=== PATIENT | female | born 1990 | race African-American/Black ===

== ENCOUNTER 2017-05-28 03:15 | Emergency (ER) | payer SELFPAY ==
[~2017-05-28] VITALS: Ht 154.9 cm; Wt 73.0 kg
[~2017-05-28 03:15] MED LIST: PREN-88 PO
[2017-05-28 03:54] VITALS: BP 118/74
== END 2017-05-28 07:43 | disposition left against medical advice (07) ==
LOC: ER 07:41
DX: R10.9 Unspecified abdominal pain (principal); Z53.21 Procedure and treatment not carried out due to patient leaving prior to being seen by health care provider

== ENCOUNTER 2022-03-14 06:17 | Emergency (ER) | payer MEDICAID ==
[~2022-03-14] VITALS: Ht 157.5 cm; Wt 79.0 kg
[2022-03-14] MEDS ORDERED: ALBUTEROL (0.083%) 2.5MG/3ML NEB HHN STA (06:32)
[2022-03-14] MEDS ORDERED: PREDNISONE 20MG TABLET PO STA (06:32)
[2022-03-14] MEDS ORDERED: P50 MT (08:59)
[2022-03-14] MEDS ORDERED: ALBU6.7H9 INH (08:59)
[2022-03-14 09:21] VITALS: BP 118/76
== END 2022-03-14 09:22 | disposition home or self-care (01) ==
LOC: ER 06:48
DX: J45.901 Unspecified asthma with (acute) exacerbation (principal); Z98.890 Other specified postprocedural states; F17.290 Nicotine dependence, other tobacco product, uncomplicated
CPT/HCPCS: 71045; 94640; 99283; 99406; J7512; Z7610

== ENCOUNTER 2022-04-30 15:11 | Emergency (ER) | payer MEDICAID ==
[~2022-04-30] VITALS: Ht 154.9 cm; Wt 100.0 kg
[~2022-04-30 15:11] MED LIST changes: +ALBU6.7H9 INH; +P50 MT
[2022-04-30 15:17] VITALS: BP 163/91
== END 2022-04-30 20:47 | disposition left against medical advice (07) ==
LOC: ER 15:11
DX: Z53.21 Procedure and treatment not carried out due to patient leaving prior to being seen by health care provider (principal)

== ENCOUNTER 2023-12-23 17:40 | Emergency (ER) | payer MEDICAID, OTHER ==
[~2023-12-23] VITALS: Ht 154.9 cm; Wt 87.0 kg
[~2023-12-23 17:40] MED LIST changes: +ALBU6.7H3 INH; -ALBU6.7H9 INH
[2023-12-23 17:43] VITALS: BP 143/89; PULSE 77; RESP 19; O2SAT 99
== END 2023-12-24 00:38 | disposition left against medical advice (07) ==
LOC: ER 17:40
DX: R10.9 Unspecified abdominal pain (principal); Z53.21 Procedure and treatment not carried out due to patient leaving prior to being seen by health care provider
CPT/HCPCS: 99281

== ENCOUNTER 2024-08-16 15:35 | Emergency (ER) | payer OTHER ==
[~2024-08-16] VITALS: Ht 152.4 cm; Wt 87.0 kg
[2024-08-16 15:37] VITALS: O2SAT 100
[2024-08-16 15:46] VITALS: BP 173/85; PULSE 113; RESP 16; TEMP 98.6; O2SAT 99
== END 2024-08-16 16:00 | disposition left against medical advice (07) ==
LOC: ER 15:35
DX: K08.89 Other specified disorders of teeth and supporting structures (principal); Z53.21 Procedure and treatment not carried out due to patient leaving prior to being seen by health care provider